=== PATIENT | female | born 1995 | race Caucasian/White ===

== ENCOUNTER → 2017-05-03 | Day surgery (SDC) | payer BC ==
[2017-05-01 10:17] VITALS: BMI 23.0
[~2017-05-03] VITALS: Ht 147.3 cm; Wt 50.0 kg
[~2017-05-03] MED LIST: BCPILLS PO; CETI10TA84 PO; FAMO20TA11 PO; FLUT0.15 NAE; LIDOCAINE HCL 2% 2 ML VIAL (20MG/ML) ONE; PRLSR20 PO; PROPOFOL IV EMULSION 10 MG/ML 20 ML VIAL IV ONE; SODIUM CHLORIDE 0.9% 500ML 500 ML IV ONE
[2017-05-03 10:55] VITALS: Ht 147.3 cm; Wt 50.0 kg
--- NOTE | 2017-05-03 11:06 | Endo History and Physical ---
History & Physical Date of Service: May 03, 2017. Chief Complaint: Dysphagia Referring Physician: Jt Franklin History of Present Illness 22 yo CF who presents for EGD secondary to dysphagia. Past Surgical History Hx Cardiac Surgery: No Hx Internal Defibrillator: No Hx Pacemaker: No Hx Abdominal Surgery: No Hx of Implantable Prosthesis: No Hx Post-Op Nausea and Vomiting: No Hx Cancer Surgery: No Hx Thoracic Surgery: No Hx Orthopedic: No Hx Urinary Tract Surgery: No Family History None Social History Smoking Status: Never Smoker Hx Substance Use: No Hx Alcohol Use: Yes (OCCASIONAL) Allergies Coded Allergies: Penicillins (Verified Allergy, Unknown, RASH - HAPPENED AN INFANT, 05/01) Current Medications Reported Home Medications Medications Dose Route/Sig Max Daily Dose Days Date Category Flonase Allergy Relief (Fluticasone Propionate (Nasal)) 50 Mcg/Act Spr 2 Sprays JAIRO DAILY PRN 05/01/17 Reported Pepcid (Famotidine) 20 Mg Tab 20 Mg PO DAILY PRN 05/01/17 Reported Zyrtec (Cetirizine HCl) 10 Mg Tab 10 Mg PO DAILY PRN 05/01/17 Reported Control Pills (Miscellaneous) Tab 1 Tab PO QPM 05/01/17 Reported Prilosec (Omeprazole) 20 Mg Capcr 20 Mg PO BID 05/01/17 Reported Vital Signs Weight (Kilograms): 50.00 Height (Feet): 4 Height (Inches): 10 Physical Exam General Appearance: WD/WN, no apparent distress Respiratory/Chest: Auscultation: breath sounds normal Cardiovascular: Heart Auscultation: RRR Abdomen: Bowel Sounds: normal Inspection & Palpation: soft, non-distended, no tenderness, guarding & rebound Assessment and Plan Assessment: 22 yo CF who presents for EGD secondary to dysphagia. Plan: Proceed with EGD.
--- NOTE | 2017-05-03 11:50 | Discharge Instructions ---
Endoscopy Patient Instructions Date / Procedure(s) Performed May 03, 2017. EGD Allergy Information Coded Allergies: Penicillins (Verified Allergy, Unknown, RASH - HAPPENED AN , 05/01) Discharge Date / Findings May 03, 2017. Mid-esophageal biopsies Medication Instructions OK to resume all medications today as prescribed Reported Home Medications Medications Dose Route/Sig Max Daily Dose Days Date Category Flonase Allergy Relief (Fluticasone Propionate (Nasal)) 50 Mcg/Act Spr 2 Sprays JAIRO DAILY PRN 05/01/17 Reported Pepcid (Famotidine) 20 Mg Tab 20 Mg PO DAILY PRN 05/01/17 Reported Zyrtec (Cetirizine HCl) 10 Mg Tab 10 Mg PO DAILY PRN 05/01/17 Reported Control Pills (Miscellaneous) Tab 1 Tab PO QPM 05/01/17 Reported Prilosec (Omeprazole) 20 Mg Capcr 20 Mg PO BID 05/01/17 Reported Provider Instructions Activity Restrictions - No exercising or heavy lifting for 24 hours. - Do not drink alcohol the day of the procedure. - Do not drive a car or operate machinery until the day after the procedure. - Do not make any important decisions or sign important papers in 24 hours after the procedure. Following Day: - Return to full activity which may include returning to work/school. Diet Start your diet with liquids and light foods (jello, soup, juice, toast). Then eat your usual diet if not nauseated. Treatment For Common After Affects For mild abdominal pain, bloating, or excessive gas: - Rest - Eat lightly - Lie on right side Follow-Up Information Follow-up with DR. FERNANDO WITT as scheduled Anesthesia Information What You Should Know You have had a procedure that required some medicine to reduce anxiety and discomfort. This treatment is called moderate sedation. After receiving the treatment, you may be sleepy, but you will be able to breathe on your own. The effects of the treatment may last for several hours. Follow these instructions along with Activity/Diet recommendations noted above: * Do NOT do anything where dizziness or clumsiness would be dangerous. * Rest quietly at home today, then you can be up and about tomorrow. * Have a responsible person stay with you the rest of today. * You may have had an I.V. today. If so, you may take the dressing off later today. Recommendations Call your doctor if: * Trouble breathing * Continuous vomiting for more than 24 hours * Temperature above 101 degrees * Severe abdominal pain or bloating * Pain not relieved by pain medicine ordered * There is increased drainage or redness from any incision * A large amount of rectal bleeding greater than 2-3 tablespoons. (If you had a polyp/s removed or have hemorrhoids, a small amount of blood - from the rectum is to be expected.) * You have any unanswered questions or concerns. IN THE EVENT OF A SERIOUS EMERGENCY, GO TO THE NEAREST EMERGENCY ROOM Your discharge instructions were prepared by provider Dandre Taylor. Patient Instructions Signature Page Melony Joe Patient (or Guardian) Signature/Date: I have read and understand the instructions given to me by my caregivers. Caregiver/RN/Doctor Signature/Date: The above-named patient and/or guardian has received patient instructions on this date. + Original Patient Signature Page (only) stays with chart. Please make copy for patient.
--- NOTE | 2017-05-03 11:54 | GI REPORT ---
Procedure Date: 05/03/2017 11:28 AM Procedure: Upper GI endoscopy Indications: Dysphagia Medicines: Monitored Anesthesia Care Complications: No immediate complications. Estimated Blood Loss: Estimated blood loss: none. Procedure: Pre-Anesthesia Assessment: - Prior to the procedure, a History and Physical was performed, and patient medications and allergies were reviewed. The patient's tolerance of previous anesthesia was also reviewed. The risks and benefits of the procedure and the sedation options and risks were discussed with the patient. All questions were answered, and informed consent was obtained. Prior Anticoagulants: The patient has taken no previous anticoagulant or antiplatelet agents. ASA Grade Assessment: II - A patient with mild systemic disease. After reviewing the risks and benefits, the patient was deemed in satisfactory condition to undergo the procedure. After obtaining informed consent, the endoscope was passed under direct vision. Throughout the procedure, the patient's blood pressure, pulse, and oxygen saturations were monitored continuously. The scope was introduced through the mouth, and advanced to the second part of duodenum. The upper GI endoscopy was accomplished without difficulty. The patient tolerated the procedure well. Findings: No endoscopic abnormality was evident in the esophagus to explain the patient's complaint of dysphagia. Biopsies were taken with a cold forceps for histology. The stomach was normal. The examined duodenum was normal. Impression: - No endoscopic esophageal abnormality to explain patient's dysphagia. Biopsied. - Normal stomach. - Normal examined duodenum. Recommendation: - Resume previous diet. - Continue present medications. - Await pathology results. - Return to GI office as previously scheduled. Dandre Taylor DO 05/03/2017 11:53:28 AM This report has been signed electronically. Note Initiated On: 05/03/2017 11:28 AM I attest to the content of the Intraoperative Record and orders documented therein, exceptions below
[2017-05-03 12:22] VITALS: BP 138/86; PULSE 51; O2SAT 97
--- NOTE | 2017-05-03 12:24 | Anesthesiology Progress Note ---
Anesthesia Post Op Note Date & Time May 03, 2017 at 12:24 Vital Signs Pain Intensity: 0 Vital Signs Past 12 Hours Date Time Temp Pulse Resp B/P (MAP) Pulse Ox O2 Delivery O2 Flow Rate FiO2 05/03/17 12:06 83 18 119/66 (83) 99 Room Air 05/03/17 11:51 84 18 120/92 (101) 99 Room Air 05/03/17 11:06 36.8 84 18 132/70 (90) 99 Room Air Notes Mental Status: alert / awake / arousable, participated in evaluation Pt Amnestic to Procedure: Yes Nausea / Vomiting: adequately controlled Pain: adequately controlled Airway Patency, RR, SpO2: stable & adequate BP & HR: stable & adequate Hydration State: stable & adequate Anesthetic Complications: no major complications apparent
== END | disposition home or self-care (01) ==
LOC: C.GI 10:43
PROVIDERS: ATTEND Internal Medicine
DX: R13.10 Dysphagia, unspecified (principal); Z79.899 Other long term (current) drug therapy

== ENCOUNTER → 2017-05-17 | Outpatient (CLI) | payer BC ==
[~2017-05-17] MED LIST changes: -LIDOCAINE HCL 2% 2 ML VIAL (20MG/ML) ONE; -PROPOFOL IV EMULSION 10 MG/ML 20 ML VIAL IV ONE; -SODIUM CHLORIDE 0.9% 500ML 500 ML IV ONE
--- NOTE | 2017-05-17 08:32 | DIAGNOSTIC IMAGING REPORT ---
(BARIUM SWALLOW) ESOPHAGUS CLINICAL HISTORY: Throat tightness. COMPARISON STUDY: None. FLUOROSCOPY TIME: 2.3 minutes. 24 images submitted. FINDINGS: The patient swallowed barium without difficulty. Esophagus is normal in course, caliber, motility. No hiatus hernia. The contours of the hypopharynx are within normal limits. Small to moderate gastroesophageal reflux. The barium tablet passed without difficulty. IMPRESSION: Small to moderate amount of gastroesophageal reflux. Electronically signed by: Toby Lee M.D. 05/17/2017 8:31 AM Dictated Date/Time: 05/17/2017 8:30 AM
== END | disposition home or self-care (01) ==
LOC: C.RAD 07:59
PROVIDERS: ATTEND Physician Assistant
DX: R13.10 Dysphagia, unspecified (principal)